=== PATIENT | female | born 1965 | race Caucasian/White ===

== ENCOUNTER → 2017-04-11 | Outpatient (CLI) | payer BC ==
--- NOTE | 2017-04-11 11:27 | WWHP ---
[facility] - HISTORY AND PHYSICAL DATE OF SERVICE: 04/11/2017 CHIEF COMPLAINT: The patient is here for her routine gynecologic exam. HPI: This is a 51-year-old, G6, P4-0-2-4 with an LMP of 03/07/2016. The patient has been experiencing more hot flashes this year. She has also been experiencing some vaginal dryness. She occasionally notices slight vaginal odor after sexual intercourse. This goes away after a few days. She currently does not notice any vaginal odor. She has also been experiencing urinary frequency. She denies dysuria. She does not usually have to get up very often at night. She denies any postmenopausal bleeding. PAST MEDICAL HISTORY: Seasonal allergies and elevated cholesterol. MEDICATIONS: 1. Claritin p.r.n. 2. Multivitamin 1 daily. ALLERGIES: No known drug allergies. PAST SURGICAL HISTORY: Hemorrhoidectomy in 1997, D&C in the past, colonoscopy 2012 and benign polyps were removed. 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 She has no history of STDs. SOCIAL HISTORY: She denies tobacco and drug use. She has about 0 to 3 alcohol containing drinks per week. 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 REVIEW OF SYSTEMS: She has lost about 5 pounds over the last year. She denies respiratory, cardiac or GI problems. PHYSICAL EXAM: Blood pressure 122/82, height 5 feet 8-1/2 inches, weight 134 pounds, BMI 20, temperature 97.7, pulse 72. This is a well-developed, well-nourished, white female who is alert and oriented x3, in no acute distress. HEENT is within normal limits. NECK: Supple without mass or thyromegaly. CHEST AND LUNGS: Clear to auscultation. HEART: Regular rate and rhythm. Breasts are without mass or discharge. Axillary exam is negative for adenopathy. BACK: Negative for CVA tenderness. ABDOMEN: Soft, nontender, without palpable masses. PELVIC EXAM: External genitalia reveals mild atrophy without lesions. Cervix and vagina reveals mild atrophy without lesions. There is no unusual discharge. No odor is noted. The uterus is mid position, nongravid size and nontender. There is no evidence of prolapse. There are no palpable adnexal masses or tenderness. RECTOVAGINAL EXAM: There is a rectal growth noted approximately 3 cm from the rectal opening at approximately the 10 o'clock position measuring approximately 0.5 cm. I initially thought this was possibly a small amount of stool, but did not seem to move or come off of the sidewall with rubbing or in palpation. This is nontender. There are no other rectal masses noted and this is nontender. Rectal exam is negative for occult blood. EXTREMITIES: Nontender. IMPRESSION: 1. A 51-year-old menopausal female with normal gynecologic exam. 2. Urinary urgency, which seems more chronic than acute. Differential diagnosis will include UTI, decreasing bladder capacity, possible incomplete emptying and overactive bladder. 3. Occasional post coital vaginal odor. Differential diagnosis will include bacterial vaginosis or transient shift in vaginal gale. Currently there is no abnormal discharge or odor noted. 4. Small rectal finding measuring approximately 0.5 cm. Differential diagnosis will include hemorrhoid or rectal polyp as well as possible stool. PLAN: 1. Pap smear was deferred since she had a normal one last year. 2. Self breast examination was discussed. 3. Mammogram is due and a slip was given to the patient for this. 4. UA and C&S will be obtained today. 5. RepHresh vaginal gel as directed. If she continues to have vaginal odor after intercourse, she will return for re-evaluation and possible wet joey. 6. Trial of Estrace vaginal cream 1to 2 grams intravaginally 2 times weekly. She will also use a small amount of vaginal cream at the urinary opening at those times. 7. The patient is scheduled for a colonoscopy within the next couple of weeks and she will be seeing Dr. Gooden for this. She will then notify Dr. Gooden of my rectal finding when she has this done. 8. She will try to empty her bladder as completely as possible, not by bearing down, but by giving herself more time and relaxing to see if she can get more urine out of the bladder when she does void. 9. She will return in 1 year and p.r.n. MMCHRISTINE / MELANIEN: [id number] /
[2017-04-11 11:51] LABS: Appearance,Urine Clear (Clear); Bilirubin,Urine Negative (Negative); Glucose,Urine (UA) Negative (Negative); Ketones,Urine Negative (Negative); Leukocyte Esterase,Urine Negative (Negative); Nitrite,Urine Negative (Negative); PH, Urine 6.5 (5.0-8.0); Protein,Urine Negative (Negative); Specific Gravity,Urine 1.006 (1.001-1.035); UA Billing (MACRO vs. MICRO) CHEM; Urobilinogen,Urine <2.0 mg/dL (<2.0)
== END | disposition home or self-care (01) ==
LOC: WWCWWP 09:14
PROVIDERS: ATTEND Obstetrics & Gynecology
DX: R35.0 Frequency of micturition (principal)
CPT/HCPCS: 81003; 87086

== ENCOUNTER → 2018-07-03 | Outpatient (CLI) | payer BC ==
[2018-07-03 09:40] VITALS: BP 131/95; PULSE 82; RESP 16; TEMP 97.8; BMI 20.8
--- NOTE | 2018-07-03 10:33 | P.HPOB ---
History of Present Illness H&P Date: 07/03/18 Chief Complaint: The patient is here for her routine gynecologic exam and ma mmogram. This is a 52-year-old with an LMP of 2017. The patient states she has had hot flashes which have improved somewhat. She is also experiencing vaginal dryness and feels like the tissue is thin and this can make it very uncomfortable during sexual intercourse. She has tried some lubricants, but she is now interested in using estrogen vaginal cream. She denies any postmenopausal bleeding. Review of Systems The patient has gained 3 pounds over the last year. She denies respiratory, cardiac, or G.I. problems. Past Medical History Past Medical History: No Reported History, Hyperlipidemia Additional Past Medical History / Comment(s): Seasonal allergies. 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 She has had cryotherapy of the cervix times 2 in the past. History of Any Multi-Drug Resistant Organisms: None Reported Additional Past Surgical History / Comment(s): Hemorrhoidectomy. Colonoscopy 2018(2nd, next 3 yrs). Past Anesthesia/Blood Transfusion Reactions: No Reported Reaction Past Psychological History: No Psychological Hx Reported Smoking Status: Never smoker Past Alcohol Use History: Occasional (3 to 5 per month) Past Drug Use History: None Reported Additional History: She has been made since 2006 and this is her 2nd marriage. 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 - Past Family History Father Family Medical History: Diabetes Mellitus Additional Family Medical History / Comment(s): Paternal grandfather had melanoma. Medications and Allergies Home Medications Medication Instructions Recorded Confirmed Type No Known Home Medications 07/03/18 07/03/18 History Allergies Allergy/AdvReac Type Severity Reaction Status Date / Time No Known Allergies Allergy Unverified 07/03/18 09:33 Exam Vital Signs Temp Pulse Resp BP Pulse Ox 07/03/18 09:34 97.8 F 82 16 131/95 97 Intake and Output 07/02/18 07/03/18 07/03/18 22:59 06:59 14:59 Other: Weight 62.142 kg Height 5'8", weight 137 pounds, BMI 20.8. This is a well-developed well-nourished white female who is alert and oriented times 3 in no acute distress. HEENT: Within normal limits. NECK: Supple without mass or thyromegaly. CHEST AND LUNGS: Clear to auscultation. HEART: Regular rate and rhythm. BREASTS: Are without mass or discharge. AXILLARY EXAM: Negative for adenopathy. BACK: Negative for CVA tenderness. ABDOMEN: Soft, nontender, without palpable masses. PELVIC EXAM: Normal external genitalia with mild atrophy. Cervix and vagina appear normal with mild atrophy. The service appears somewhat stenotic and mildly scarred consistent with previous cryotherapy and atrophy. There is no unusual discharge. There is no evidence of prolapse. The uterus is midposition, nongravid size and nontender. There are no palpable adnexal masses or tenderness. RECTAL EXAM: rectovaginal exam is negative for mass or tenderness and is negative for occult blood. EXTREMITIES: Nontender. IMPRESSION: 1. 52-year-old menopausal female with normal gynecologic exam. 2. Vaginal dryness with sexual activity secondary to atrophy. PLAN: 1. Pap smear was performed. 2. Self breast awareness was discussed with the patient. 3. Screening mammogram will be done today. 4. Osteoporosis prevention was discussed. I have stressed the importance of adequate calcium, vitamin D and regular exercise. Recommended amounts of calcium and vitamin D were also discussed. 5. Premarin vaginal cream 1 to 2 g intravaginally twice weekly. The electronic prescription will be sent to [facility] pharmacy. 6. She will return in one year.
--- NOTE | 2018-07-04 10:44 | MM ---
Reason for exam: screening (asymptomatic). Last mammogram was performed 5 years ago. History: Taking hormonal contraceptives for 4 years. Physical Findings: A clinical breast exam by your physician is recommended on an annual basis and results should be correlated with mammographic findings. MG 3D Screening Mammo W/Cad Bilateral CC and MLO view(s) were taken. Prior study comparison: July 08, 2013, bilateral digital screening mammo w/CAD. November 26, 2008, bilateral digital screening mammogram. The breast tissue is heterogeneously dense. This may lower the sensitivity of mammography. No suspicious abnormality. No significant changes when compared with prior studies. ASSESSMENT: Negative, BI-RAD 1 RECOMMENDATION: Routine screening mammogram of both breasts in 1 year.
== END | disposition home or self-care (01) ==
LOC: WWCWWP 09:22
PROVIDERS: ATTEND Obstetrics & Gynecology
DX: Z12.31 Encounter for screening mammogram for malignant neoplasm of breast (principal)
CPT/HCPCS: 77063; 77067

== ENCOUNTER → 2020-03-23 | Outpatient (CLI) | payer BC ==
--- NOTE | 2020-03-23 16:02 | XR ---
EXAMINATION TYPE: XR chest 2V DATE OF EXAM: 03/23/2020 COMPARISON: None INDICATION: Cough x1 month TECHNIQUE: Frontal and lateral views of the chest are obtained. FINDINGS: The heart size is normal. The pulmonary vasculature is normal. The lungs are clear. IMPRESSION: 1. No acute pulmonary process.
== END | disposition home or self-care (01) ==
LOC: RADXRMAIN 12:28
PROVIDERS: ATTEND Otolaryngology
DX: R05 Cough (principal)
CPT/HCPCS: 71046

== ENCOUNTER → 2020-04-06 | Outpatient (CLI) | payer BC ==
--- NOTE | 2020-04-06 15:05 | BD ---
EXAMINATION TYPE: Axial Bone Density DATE OF EXAM: 04/06/2020 COMPARISON: NONE CLINICAL HISTORY: 54 YR OLD FEMALE....ICD-10 CODE: Z78.0 POST MENOPAUSAL Height: 68 Weight: 135 FRAX RISK QUESTIONS: Family History (Parent hip fracture): YES RISK FACTORS HISTORY OF: BROKEN BONES ONLY A CHILD Family History of Osteoporosis: MOTHER AND GRANDMOTHER, WITH HIP FXS Diet low in dairy products/other sources of calcium: YES Postmenopausal woman: YES, AT AGE 51 Hyperparathyroidism: NO Adrenal Insufficiency: NO MEDICATIONS: Prednisone or other steroids: INHALERS, STEROIDAL, AND PREDNISONE Additional Medications: VIT D AND CALCIUM Additional History: NOTHING TO NOTE HERE EXAM MEASUREMENTS: Bone mineral densitometry was performed using the ulike System. Bone mineral density as measured about the Lumbar spine is: ----- L1-L4(G/cm2): 0.883 T Score Values are as follows: ----- L1: -3.1 ----- L2: -2.9 ----- L3: -1.8 ----- L4: -2.3 ----- L1-L4: -2.5 Bone mineral density BASELINE STUDY Bone mineral density about the R hip (g/cm2): 0.720 Bone mineral density about the L hip (g/cm2): 0.747 T Score values are as follows: -----R Neck: -2.5 -----L Neck: -2.5 -----R Total: -2.3 -----L Total: -2.1 Bone mineral density BASELINE STUDY FRAX%S: THERE IS A 17.1% CHANCE FOR A MAJOR OSTEOPOROTIC FX AND A 2.0% FOR HIP......PROBABILITY FO R FX IN 10 YRS TIME IMPRESSION: Osteopenia (T Score between -2.5 and -1). There is slightly increased risk of fracture and the patient may be considered for treatment. Re-Screen 2-5 years. NOTE: T-SCORE=SD OF THE YOUNG ADULT MEAN.
--- NOTE | 2020-04-06 21:16 | WWPN ---
[facility] - PROGRESS NOTE DATE OF DICTATION: 04/06/2020. The patient is requesting screening blood work. She is currently in between primary care physicians. She has an appointment to see me for her annual well-woman examination on 04/20/2020. She also has a history of osteoporosis in her mother and would like to start bone density testing. Mammogram and bone density testing will be done today. Blood work will include CBC, comprehensive Chem panel, and fasting lipid profile. MMODL / IJN: [id number] /
--- NOTE | 2020-04-07 11:57 | MM ---
Reason for exam: screening (asymptomatic). Last mammogram was performed 1 year and 9 months ago. History: Patient is postmenopausal. Took hormonal contraceptives for 4 years. Physical Findings: A clinical breast exam by your physician is recommended on an annual basis and results should be correlated with mammographic findings. MG 3D Screening Mammo W/Cad Bilateral CC and MLO view(s) were taken. Prior study comparison: July 03, 2018, bilateral MG 3d screening mammo w/cad. July 08, 2013, bilateral digital screening mammo w/CAD. The breast tissue is heterogeneously dense. This may lower the sensitivity of mammography. There is no discrete abnormality. No significant changes when compared with prior studies. ASSESSMENT: Negative, BI-RAD 1 RECOMMENDATION: Routine screening mammogram of both breasts in 1 year.
--- NOTE | 2020-04-07 14:30 | P.PN ---
Progress Note - Text Progress Note Date: 04/07/20 OUTPATIENT FOLLOW-UP NOTE TEST(S)/RESULTS: Bone density test done on 04/06/2020 shows osteopenia very close to osteoporosis. Test results from 04/07/2020 include slightly elevated total bilirubin, elevated cholesterol and elevated LDL cholesterol. CBC was okay. METHOD OF NOTIFICATION: The patient was notified by phone. PATIENT COMMENTS: DIAGNOSIS: Osteopenia bordering osteoporosis, mildly elevated total bilirubin and increased cholesterol. DISCUSSION: We have had a long discussion regarding her bone density test. Because it is very close to osteoporosis, I am offering her medication for this. She would like to think about this. We have also discussed her abnormal blood tests. She states she is planning on establishing with a primary care physician near her home. I will send her copy of the blood work and she can bring this to the PCP. She understands that she should follow up with the abnormals with that PCP. Information on cholesterol and women's cardiovascular health which is the ACOG FAQ handout as well as information on osteoporosis and Fosamax will be mailed to the patient. The calcium frequently asked questions handout will also be sent to the patient. PLAN: She was instructed to call she has any questions. She has an upcoming annual well woman visit in the near future. She will let me know if she wants to start medication for her osteopenia bordering on osteoporosis.
== END | disposition home or self-care (01) ==
LOC: RADMAMWWP 13:42
PROVIDERS: ATTEND Obstetrics & Gynecology
DX: Z12.31 Encounter for screening mammogram for malignant neoplasm of breast (principal); M85.80 Other specified disorders of bone density and structure, unspecified site; Z78.0 Asymptomatic menopausal state
CPT/HCPCS: 77063; 77067; 77080

== ENCOUNTER → 2020-04-07 | Outpatient (CLI) | payer BC ==
[2020-04-07 07:37] LABS: HCT 44.9 % (34.0-46.0); HGB 14.9 gm/dL (11.4-16.0); MCH 28.7 pg (25.0-35.0); MCHC 33.2 g/dL (31.0-37.0); MCV 86.3 fL (80.0-100.0); Mean Platelet Volume 6.9; Platelet Count 227 k/uL (150-450); RDW 13.8 % (11.5-15.5); WBC 4.4 k/uL (3.8-10.6)
[2020-04-07 11:42] LABS: African American GFR (CKD) 95.5 (60.0-200.0); Albumin 4.4 g/dL (3.80-4.90); Albumin/Globulin Ratio 2.2 (1.60-3.17); Anion Gap 5.7 mmol/L (4.00-12.00); Calcium 9.2 mg/dL (8.7-10.3); Carbon Dioxide 30.3 mmol/L (21.6-31.8); Chol/HDL Ratio 3.43; LDL Cholesterol,Calculated 162.2 mg/dL (0.0-131.0); Non-African American GFR(CKD) 82.4 (60.0-200.0); Potassium 4.6 mmol/L (3.5-5.5); Total Bilirubin 1.4 mg/dL (0.2-1.2); Total Protein 6.4 g/dL (6.2-8.2); VLDL Calculation 17.8 mg/dL (5.00-40.00)
== END | disposition home or self-care (01) ==
LOC: LABWHC1 07:18
PROVIDERS: ATTEND Obstetrics & Gynecology
DX: Z00.00 Encounter for general adult medical examination without abnormal findings (principal)
CPT/HCPCS: 36415; 80053; 80061; 85027

== ENCOUNTER → 2020-04-20 | Outpatient (CLI) | payer BC ==
[2020-04-20 11:41] VITALS: BP 126/82; PULSE 70; RESP 18; TEMP 97.6
--- NOTE | 2020-04-20 12:39 | P.HPOB ---
History of Present Illness H&P Date: 04/20/20 Chief Complaint: The patient is here for her routine gynecologic exam. This is a 54-year-old 024 with an LMP of 2017. The patient is complaining of worsening urinary incontinence. In the past she would have small leaks with coughing or sneezing. More recently this has gotten worse with increasing amounts of urinary leakage. They typically are associated with coughing and sneezing, but can also happen with simply walking. She denies urgency at the times of the leakage. She has tried ketal exercises without success. We had spoken about osteopenia and the possibility of taking medication for this since it was close to osteoporosis. She would like to take a supplement that contains vitamin D, calcium, magnesium and vitamin C. She will go without prescription medication for osteopenia at this time. She continues to have vaginal dryness with sexual intercourse and would like to try vaginal estrogen cream which was previously recommended but she has not used this yet. She plans on establishing with Dr. Logan as her primary care physician but has not seen them yet. Review of Systems She has lost about 3 pounds over the past year. Respiratory: She has had slight occasional cough after getting Covid earlier in the year. She has had a chest x-ray for this recently and was apparently negative. She denies cardiac or GI problems. : She has been experiencing more urinary incontinence as in the HPI. Past Medical History Past Medical History: Hyperlipidemia Additional Past Medical History / Comment(s): Seasonal allergies. 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 She has had cryotherapy of the cervix times 2 in the past. History of Any Multi-Drug Resistant Organisms: None Reported Additional Past Surgical History / Comment(s): Hemorrhoidectomy. Colonoscopy 2018(2nd, next 3 yrs). Past Anesthesia/Blood Transfusion Reactions: No Reported Reaction Past Psychological History: No Psychological Hx Reported Smoking Status: Never smoker Past Alcohol Use History: Occasional (2-20 per month) Past Drug Use History: None Reported Additional History: She has been since 2006 and this is her second marriage. 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 - Past Family History Father Family Medical History: Diabetes Mellitus Additional Family Medical History / Comment(s): Paternal grandfather had melanoma. Medications and Allergies Home Medications Medication Instructions Recorded Confirmed Type Ascorbic Acid [Vitamin C] 500 mg PO DAILY 04/20/20 04/20/20 History Calcium Carbonate [Calcium] 600 mg PO BID 04/20/20 04/20/20 History Cholecalciferol [Vitamin D3 (25 1,000 unit PO DAILY 04/20/20 04/20/20 History Mcg = 1000 Iu)] Multivitamin [Multivitamins Adult 1 each PO DAILY 04/20/20 04/20/20 History Gummies] [place]-3 Fatty Acids/Fish Oil 1 each PO DAILY 04/20/20 04/20/20 History [[place]-3 Fish Oil 1,200 mg Sfgl] Zinc 50 mg PO DAILY 04/20/20 04/20/20 History Allergies Allergy/AdvReac Type Severity Reaction Status Date / Time No Known Allergies Allergy Unverified 04/20/20 11:26 Exam Vital Signs Temp Pulse Resp BP Pulse Ox 04/20/20 11:13 97.6 F 70 18 126/82 99 Intake and Output 04/19/20 04/20/20 04/20/20 22:59 06:59 14:59 Other: Weight 60.781 kg Height 5 feet 8 in half inches, weight 134 pounds, BMI 20.1. This is a well-developed well-nourished white female who is alert and oriented times 3 in no acute distress. HEENT: Within normal limits. NECK: Supple without mass or thyromegaly. CHEST AND LUNGS: Clear to auscultation. HEART: Regular rate and rhythm. BREASTS: Are without mass or discharge. AXILLARY EXAM: Negative for adenopathy. BACK: Negative for CVA tenderness. ABDOMEN: Soft, nontender, without palpable masses. PELVIC EXAM: Normal external genitalia with minimal atrophy. Cervix and vagina appear normal with minimal atrophy. There is no unusual discharge. There is no evidence of prolapse. There is minimal urethral mobility with cough and Valsalva. No urinary leakage was demonstrated. The uterus is midposition, multiparous nongravid size and nontender. There are no palpable adnexal masses or tenderness. RECTAL EXAM: rectovaginal exam is negative for mass or tenderness and is negative for occult blood. There is good sphincter tone. EXTREMITIES: Nontender. IMPRESSION: 1. 54-year-old menopausal female with normal gynecologic exam. 2. Worsening stress urinary incontinence without any significant physical findings at this time. 3. Osteopenia by recent bone density testing. PLAN: 1. Pap smear was deferred since she had a normal one on 07/03/2018. 2. Self breast awareness was discussed with the patient. She had a normal mammogram on 04/06/2020. 3. Osteoporosis prevention was discussed. I have stressed the importance of adequate calcium, vitamin D and regular exercise. Recommended amounts of calcium and vitamin D were also discussed. She states she did not receive information on osteoporosis and Fosamax. This was supposedly sent out April 07, 2020. This information will be again sent to her along with information on lowering cholesterol and her recent lab tests done in March. 4. She would like to have a trial of vaginal estrogen cream. Premarin vaginal cream 1-2 g into the vagina 2 times weekly. The electronic prescription will be sent to [facility] pharmacy. 5. The patient will be referred to Dr. Holland the gynecologic urologist at [facility] for evaluation of her worsening urinary incontinence. She will continue to do ketal exercises on a regular basis. 6. She will follow-up with Dr. Logan regarding her recent screening blood tests which included it slightly elevated total bilirubin. She will go over these test results as well as her elevated cholesterol results with him. 7. She was advised to return in one year for her annual well woman exam and as needed.
== END | disposition home or self-care (01) ==
LOC: WWCWWP 11:07
PROVIDERS: ATTEND Obstetrics & Gynecology
DX: Z53.9 Procedure and treatment not carried out, unspecified reason (principal)

== ENCOUNTER → 2021-06-07 | Outpatient (CLI) | payer OTHER ==
[2021-06-07 14:16] VITALS: BP 127/79; PULSE 62; RESP 16; TEMP 97.5
--- NOTE | 2021-06-07 14:51 | P.HPOB ---
History of Present Illness H&P Date: 06/07/21 Chief Complaint: The patient is here for her routine gynecologic exam and ma mmogram. This is a 55-year-old with an LMP of 2017. The patient is without gynecologic complaints and denies any postmenopausal bleeding. She was seen by for urinary incontinence and was diagnosed with mixed urinary incontinence and nonsurgical treatments were discussed. She is seeing a therapist which helps her with pelvic floor exercises and she feels that this has been helpful. She briefly used estrogen vaginal cream but did not believe it was helping and this was discontinued. She is taking Paxil for hot flashes through her PCP and she thinks this has been beneficial. Review of Systems The patient has gained 4 pounds over the last year. She denies respiratory, cardiac, or G.I. problems. Past Medical History Past Medical History: Hyperlipidemia Additional Past Medical History / Comment(s): Seasonal allergies. 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 She has had cryotherapy of the cervix times 2 in the past. History of Any Multi-Drug Resistant Organisms: None Reported Additional Past Surgical History / Comment(s): Hemorrhoidectomy. Colonoscopy 2018(2nd, next 3 yrs). Past Anesthesia/Blood Transfusion Reactions: No Reported Reaction Past Psychological History: No Psychological Hx Reported Smoking Status: Never smoker Past Alcohol Use History: Occasional (1 per week) Past Drug Use History: None Reported Additional History: She has been since 2006 and this is her second marriage. 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 They now have a place in [place] and will be going between [place] in [place] and during the year. - Past Family History Father Family Medical History: Diabetes Mellitus Additional Family Medical History / Comment(s): Paternal grandfather had melanoma. Medications and Allergies Home Medications Medication Instructions Recorded Confirmed Type Ascorbic Acid [Vitamin C] 500 mg PO DAILY 04/20/20 06/07/21 History Calcium Carbonate [Calcium] 600 mg PO BID 04/20/20 06/07/21 History Cholecalciferol [Vitamin D3 (25 1,000 unit PO DAILY 04/20/20 06/07/21 History Mcg = 1000 Iu)] Multivitamin [Multivitamins Adult 1 each PO DAILY 04/20/20 06/07/21 History Gummies] Viola-3 Fatty Acids/Fish Oil 1 each PO DAILY 04/20/20 06/07/21 History [Viola-3 Fish Oil 1,200 mg Sfgl] Zinc 50 mg PO DAILY 04/20/20 06/07/21 History PARoxetine HCL [Paxil] 10 mg PO DAILY 06/07/21 06/07/21 History Rosuvastatin [Crestor] 10 mg PO DAILY 06/07/21 06/07/21 History Allergies Allergy/AdvReac Type Severity Reaction Status Date / Time No Known Allergies Allergy Unverified 06/07/21 14:05 Exam Vital Signs Temp Pulse Resp BP Pulse Ox 06/07/21 14:12 97.5 F L 62 16 127/79 98 Intake and Output 06/06/21 06/07/21 06/07/21 22:59 06:59 14:59 Other: Weight 62.596 kg Height 5 feet 8-1/2 inches, weight 138 pounds, BMI 20.7. This is a well-developed well-nourished white female who is alert and oriented times 3 in no acute distress. HEENT: Within normal limits. NECK: Supple without mass or thyromegaly. CHEST AND LUNGS: Clear to auscultation. HEART: Regular rate and rhythm. BREASTS: Are without mass or discharge. AXILLARY EXAM: Negative for adenopathy. BACK: Negative for CVA tenderness. ABDOMEN: Soft, nontender, without palpable masses. PELVIC EXAM: Normal external genitalia with mild atrophy. Cervix and vagina appear normal with mild atrophy. The cervix appears stenotic consistent with previous cryotherapy's of the cervix. There are no cervical lesions. There is no unusual discharge. There is no evidence of prolapse. There is no evidence of cystocele. The uterus is midposition, nongravid size and nontender. There are no palpable adnexal masses or tenderness. RECTAL EXAM: Rectovaginal exam is negative for mass or tenderness and is negative for occult blood. EXTREMITIES: Nontender. IMPRESSION: 1. 55-year-old menopausal female with normal gynecologic exam. 2. History of mixed urinary incontinence treated nonsurgically. 3. History of osteopenia. PLAN: 1. Pap smear cotest was performed. 2. Self breast awareness was discussed with the patient. We have also discussed symptoms associated with inflammatory breast cancer. 3. Screening mammogram will be done today. 4. Osteoporosis prevention was discussed. I have stressed the importance of adequate calcium, vitamin D and regular exercise. Recommended amounts of calcium and vitamin D were also discussed. We will plan on repeating bone density testing in 1 year. 5. She has not received a Covid vaccination, but did have Covid last year. She understands the CDC recommends Covid vaccination. 6. She was advised to return in one year for her annual well woman exam.
--- NOTE | 2021-06-09 10:58 | MM ---
Reason for exam: screening (asymptomatic). Last mammogram was performed 1 year and 2 months ago. History: Patient is postmenopausal. Took hormonal contraceptives for 4 years. Physical Findings: A clinical breast exam by your physician is recommended on an annual basis and results should be correlated with mammographic findings. MG 3D Screening Mammo W/Cad Bilateral CC and MLO view(s) were taken. XCCL view(s) were taken of the left breast. Prior study comparison: April 06, 2020, bilateral MG 3d screening mammo w/cad. July 03, 2018, bilateral MG 3d screening mammo w/cad. There are scattered fibroglandular densities. No significant changes when compared with prior studies. ASSESSMENT: Benign, BI-RAD 2 RECOMMENDATION: Routine screening mammogram of both breasts in 1 year.
== END ==
LOC: WWCWWP 13:57
PROVIDERS: ATTEND Obstetrics & Gynecology
DX: Z12.31 Encounter for screening mammogram for malignant neoplasm of breast (principal); Z12.4 Encounter for screening for malignant neoplasm of cervix; Z01.419 Encounter for gynecological examination (general) (routine) without abnormal findings; E78.5 Hyperlipidemia, unspecified; Z87.39 Personal history of other diseases of the musculoskeletal system and connective tissue; Z87.448 Personal history of other diseases of urinary system
CPT/HCPCS: 77063; 77067

== ENCOUNTER → 2022-10-31 | Outpatient (CLI) | payer BC ==
[2022-10-31 10:33] VITALS: BP 126/83; PULSE 66; RESP 16; TEMP 97.8
--- NOTE | 2022-10-31 11:37 | P.HPOB ---
History of Present Illness H&P Date: 10/31/22 Chief Complaint: The patient is here for her routine gynecologic exam and ma mmogram. This is a 57-year-old 0-4 with an LMP of 2017. The patient states she continues to have some urinary incontinence especially with an standing and walking. Coughing and sneezing does not seem to be a very big problem if she is sitting or laying. She does not have much problem with this at night. She has used exercises as suggested by a physical therapist for the incontinence without much help. She is also used vaginal estrogen without much improvement. Over the past 2 months she has noticed a very small white bump at the vaginal opening in the midline near the perineum. It is not painful. She is otherwise without gynecologic complaints. Review of Systems She has gained about 12 pounds over the past year. She denies respiratory, cardiac, or GI problems. Musculoskeletal: She has noticed some posterior calf soreness or cramping at times. Past Medical History Past Medical History: Hyperlipidemia Additional Past Medical History / Comment(s): Ascending aortic aneurysm measuring approximate 4 cm which has been followed conservatively. Seasonal allergies. 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 She has had cryotherapy of the cervix times 2 around 1994. History of Any Multi-Drug Resistant Organisms: None Reported Additional Past Surgical History / Comment(s): Hemorrhoidectomy. Colonoscopy 2018(2nd, next 3 yrs). Past Anesthesia/Blood Transfusion Reactions: No Reported Reaction Past Psychological History: No Psychological Hx Reported Smoking Status: Never smoker Past Alcohol Use History: Occasional (10-15 per week.) Past Drug Use History: None Reported Additional History: She is been since 2006 and this is her second marriage. 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 She spends much of the winter in [place]. - Past Family History Father Family Medical History: Diabetes Mellitus Additional Family Medical History / Comment(s): Paternal grandfather had melanoma. Medications and Allergies Home Medications Medication Instructions Recorded Confirmed Type Ascorbic Acid [Vitamin C] 500 mg PO DAILY 04/20/20 10/31/22 History Cholecalciferol [Vitamin D3 (25 1,000 unit PO DAILY 04/20/20 10/31/22 History Mcg = 1000 Iu)] Multivitamin [Multivitamins Adult 1 each PO DAILY 04/20/20 10/31/22 History Gummies] Sundance-3 Fatty Acids/Fish Oil 1 each PO DAILY 04/20/20 10/31/22 History [Sundance-3 Fish Oil 1,200 mg Sfgl] Zinc 50 mg PO DAILY 04/20/20 10/31/22 History PARoxetine HCL [Paxil] 10 mg PO DAILY 06/07/21 10/31/22 History Rosuvastatin [Crestor] 10 mg PO DAILY 06/07/21 10/31/22 History Allergies Allergy/AdvReac Type Severity Reaction Status Date / Time No Known Allergies Allergy Unverified 10/31/22 10:29 Exam Vital Signs Temp Pulse Resp BP Pulse Ox 10/31/22 10:30 97.8 F 66 16 126/83 96 Intake and Output 10/30/22 10/31/22 10/31/22 22:59 06:59 14:59 Other: Weight 68.039 kg Height 5 feet 9 inches, weight 150 pounds, BMI 22.2 This is a well-developed well-nourished white female who is alert and oriented times 3 in no acute distress. HEENT: Within normal limits. NECK: Supple without mass or thyromegaly. CHEST AND LUNGS: Clear to auscultation. HEART: Regular rate and rhythm. BREASTS: Are without mass or discharge. AXILLARY EXAM: Negative for adenopathy. BACK: Negative for CVA tenderness. ABDOMEN: Soft, nontender, without palpable masses. PELVIC EXAM: External genitalia reveals mild atrophy. On initial inspection no abnormalities were noted. The patient pointed out that she noticed a small lump in the posterior fourchette at the top of the perineum and there is a 1-2 mm white skin tag that is not erythematous and nontender. Cervix and vagina appear normal with mild atrophy. There is no unusual discharge. There is no evidence of prolapse at rest. With cough and Valsalva a small amount of the urethral mobility is noted with no urinary leakage demonstrated. The uterus is midposition, nongravid size and nontender. There are no palpable adnexal masses or tenderness. RECTAL EXAM: Rectovaginal exam is negative for mass or tenderness and is negative for occult blood. There is good sphincter tone. EXTREMITIES: Nontender. IMPRESSION: 1. 57-year-old menopausal female with with small skin tag at the posterior fourchette in the midline. Differential diagnosis will include benign skin tag as well as very small genital wart or very small craven pimple. 2. Stress urinary incontinence not significantly improving with exercises or estrogen cream. 3. History of osteopenia bordering on osteoporosis. PLAN: 1. Pap smear was deferred since she had a negative Pap smear cotest on 06/07/2021. 2. Self breast awareness was discussed with the patient. We have also discussed symptoms associated with inflammatory breast cancer. 3. Screening mammogram will be done today. 4. Osteoporosis prevention was discussed. I have stressed the importance of adequate calcium, vitamin D and regular exercise. Recommended amounts of calcium and vitamin D were also discussed. Bone density test will be done today. 5. We have had a long discussion regarding her urinary incontinence. She will continue to use the estrogen vaginal cream as directed. I recommended that she see Dr. 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 She had seen him in 2020 and was managed conservatively. She states she would like to hold on the referral for this but will call if she decides to proceed with this 6. She would like to have the small lump at the posterior fourchette removed. She will schedule a time for that. 7. She probably is due for colonoscopy and will speak with her PCP to help arrange for that. 8. She was advised to return in one year for her annual well woman exam and as needed.
--- NOTE | 2022-10-31 19:20 | BD ---
EXAMINATION TYPE: Axial Bone Density DATE OF EXAM: 10/31/2022 CLINICAL HISTORY: 57 years old Female. ICD-10 CODE: Z78.0 POST MENOPAUSAL WITHOUT HRT Height: 64 Weight: 148.2 FRAX RISK QUESTIONS: Alcohol (3 or more units per day): no Family History (Parent hip fracture): no Glucocorticoids (More than 3mos): no (Ex: prednisone, prednisolone, methylprednisolone, dexamethasone, and hydrocortisone). History of Fracture in Adulthood: no Secondary Osteoporosis: 1. Type 1 Diabetes: no 2. Hyperthyroidism: no 3. Menopause before 45: no 4. Malnutrition: no 5. Chronic liver disease: no Rheumatoid Arthritis: no Current Tobacco Use: no RISK FACTORS HISTORY OF: Surgery to Spine/Hip(right/left)/Wrist (right/left): no Family History of Osteoporosis: yes Active: yes Diet low in dairy products/other sources of calcium: yes Postmenopausal woman: yes Lost more than 2 inches in height since high school: no MEDICATIONS: Additional History: EXAM MEASUREMENTS: Bone mineral densitometry was performed using the [email or web address] System. Bone mineral density as measured about the Lumbar spine is: ----- L1-L4(G/cm2): 0.874 T Score Values are as follows: ----- L1: -3.0 ----- L2: -2.9 ----- L3: -2.2 ----- L4: -2.3 ----- L1-L4: -1.5 Z Score Values are as follows: ----- L1: -2.0 ----- L2: -1.9 ----- L3: -1.1 ----- L4: -1.3 ----- L1-L4: -1.5 Bone mineral density has: decreased -1.0 % since study of: 04.06.2020 Bone mineral density about the R hip (g/cm2): 0.731 Bone mineral density about the L hip (g/cm2): 0.724 T Score values are as follows: -----R Neck: -2.3 -----L Neck: -2.6 -----R Total: -2.2 -----L Total: -2.3 Z Score values are as follows: -----R Neck: -1.2 -----L Neck: -1.4 -----R Total: -1.4 -----L Total: -1.4 Bone mineral density has: decreased -1.0 % since study of: 04.06.2020 FRAX%s: The graph provided illustrates a 10.9% chance for a major osteoporotic fx and a 2.3% chance f or the hips probability for fx in 10 years time. IMPRESSION: Osteoporosis (T Score less than -2.5). There is increased fracture risk and therapy is usually indicated based on age. Re-Screen 1-2 years. NOTE: T-SCORE=SD OF THE YOUNG ADULT MEAN.
--- NOTE | 2022-11-01 11:32 | P.PN ---
Progress Note - Text Progress Note Date: 11/01/22 Patient called today on 11/01/2022 asking to discuss her bone density results from 10/31/2022. Bone density test on 10/31/2022 shows osteoporosis. I have recommended treatment for osteoporosis with prescription medication. We have had a long discussion regarding Fosamax. We have discussed pros and cons with this medication. We've discussed possible risks including possible increased risk for esophageal ulcers. We have also discussed how this medication should be taken including taking it on an empty stomach, with a full glass of water, and to stay upright for 1 hour. We have also discussed risks of osteonecrosis of the jaw. She understands that this medication should be avoided if there is upcoming jaw surgery or upcoming dental procedures that involved the jaw. I have also stressed the importance of adequate calcium, vitamin D, and regular exercise. Information osteoporosis and Fosamax will be given to the patient. A lab slip for serum creatinine and serum calcium will also be given to the patient. If she decides to take the medication after reading the information, she will have the blood tests drawn. She would like to greens picker the information at the [facility] end [facility], so these things will be left for her there.
--- NOTE | 2022-11-01 15:30 | MM ---
Reason for Exam: Screening (asymptomatic). Last mammogram was performed 1 year(s) and 5 month(s) ago. Patient History: Menarche at age 11. First Full-Term at age 24. Postmenopausal. Patient used Hormonal Contraceptives for 4 years. Risk Values: Rachna 5 year model risk: 1.5%. NCI Lifetime model risk: 8.3%. Prior Study Comparison: 07/03/2018 Bilateral Screening Mammogram, [facility]. 04/06/2020 Bilateral Screening Mammogram, [facility]. 06/07/2021 Bilateral Screening Mammogram, [facility]. Tissue Density: There are scattered fibroglandular densities. Findings: Analyzed By CAD. Pattern appears symmetrical and stable. No significant interval change is evident. No suspicious groups of microcalcifications, spiculated or lobular masses, architectural distortion or other secondary signs of malignancy are mammographically apparent. Overall Assessment: Benign, BI-RAD 2 Management: Screening Mammogram of both breasts in 1 year. A negative mammogram report should not preclude additional follow up of suspicious palpable abnormalities. Patient should continue monthly self breast exam. A clinical breast exam by your physician is recommended on an annual basis and results should be correlated with mammographic findings. Electronically signed and approved by: Lucas Meraz D.O. Radiologis
== END ==
LOC: WWCWWP 10:15
PROVIDERS: ATTEND Obstetrics & Gynecology
DX: Z01.419 Encounter for gynecological examination (general) (routine) without abnormal findings (principal); Z12.31 Encounter for screening mammogram for malignant neoplasm of breast; N95.1 Menopausal and female climacteric states; A63.0 Anogenital (venereal) warts; E78.5 Hyperlipidemia, unspecified; L91.8 Other hypertrophic disorders of the skin; M81.8 Other osteoporosis without current pathological fracture; N39.3 Stress incontinence (female) (male); Z13.820 Encounter for screening for osteoporosis
CPT/HCPCS: 77063; 77067; 77080

== ENCOUNTER → 2022-12-20 | Day surgery (SDC) | payer BC ==
[2022-12-20 12:29] VITALS: BP 113/73; PULSE 58; RESP 17; TEMP 98.2
--- NOTE | 2022-12-20 12:52 | P.PCN ---
Date of Procedure: 12/20/22 Preoperative Diagnosis: Vulvar lesion at posterior fourchette Postoperative Diagnosis: same Procedure(s) Performed: removal of vulvar lesion Anesthesia: local Surgeon: Jack Esparza Estimated Blood Loss (ml): 1 Pathology: other (Vulvar lesion) Condition: stable Disposition: same day Indications for Procedure: This was a 57 year old with an LMP of 2017. The patient has noticed a small bump at the posterior aspect of the vaginal opening near the perineum. I saw a 1-2 mm bump in this area at the time of her exam on 10/31/2022. We scheduled a time to have this removed. Since her last exam here, she states she saw doctor in [place] and had mentioned this small bump and he applied something to it to see if it would go away. The patient is not sure what he applied to it. She states it did not go away and kept the appointment with me today to have it removed. Operative Findings: The small 1-2 mm bump was noticed and was unchanged. Near that small bump was a round lesion with a diameter of approximately 3 mm and was whitish with an u mbilicated center. This was approximately 3 mm from the aforementioned bump and was slightly distal to the bump. Description of Procedure: Preprocedure vital signs: Blood pressure 130/87, height 5 feet 9 inches, weight 150 pounds, BMI 22.2, temperature 98.1, pulse 65, pulse oximeter 97%. After discussing the procedure along with possible risks including bleeding and infection, the patient was placed in the lithotomy position. The area was prepped with Betadine solution. 1 mL of 1% lidocaine was used for local anesthesia. Following determination of adequate anesthesia, a cervical biopsy instrument was used to remove both the 1-2 mm bump and the umbilicated lesion adjacent to it. A silver nitrate stick was used to make the area hemostatic. A small amount of triple antibiotic ointment was applied to this area. A single piece of gauze was placed over the area. The patient tolerated the procedure well. The estimated blood loss was 1 mL. Post procedure blood pressure was 113/73 mL pulse 58, pulse oximeter 98%. Post procedure instructions were given. She was instructed to avoid sexual activity for 1 week and until it feels completely healed. She will apply a small amount of Neosporin to the area twice a day. She will keep the area clean and dry. She will avoid running and any strenuous activity for 1 week. She was instructed to call she's having heavy bleeding or worsening pain or problems. For small amount of bleeding, she was instructed to hold pressure to the area. Discussion: Differential diagnosis will include a benign skin tag, very small condyloma, and less likely, vulvar dysplasia. The additional adjacent lesion with the umbilicated center most likely represents changes resulting from the application of something that may have been applied by the doctor in [place], possibly to treat condyloma such as trichloroacetic acid. This part of the lesion was not seen 1-1/2 months ago and this is why I think it may have been caused by application of some type of acid. Since it had a small umbilicated center, the differential diagnosis will also include a molluscum contagiosum lesion.
--- NOTE | 2022-12-26 19:41 | P.PN ---
Progress Note - Text Progress Note Date: 12/26/22 OUTPATIENT FOLLOW-UP NOTE TEST(S)/RESULTS: Vulvar biopsy showed condyloma acuminatum METHOD OF NOTIFICATION: She was notified by phone on 12/26/2022. PATIENT COMMENTS: She states the area feels fine and bleeding is completely stopped. DIAGNOSIS: Vulvar condyloma DISCUSSION: I have stressed the importance of having regular follow-up and also to call if she is noticing any recurrence of the lesion or if problems. I have advised her to avoid sexual intercourse for 1 more week. PLAN: She was advised to return in one year for her annual well woman exam and as needed.
== END ==
LOC: WWCWWP 11:01
PROVIDERS: ATTEND Obstetrics & Gynecology
DX: N90.0 Mild vulvar dysplasia (principal)
CPT/HCPCS: 56605; 88305